=== PATIENT | female | born 1995 | race Asian ===

== ENCOUNTER 2025-03-29 12:32 | Emergency (ER) | payer OTHER ==
[~2025-03-29] VITALS: Ht 157.5 cm; Wt 86.0 kg
[2025-03-29] MEDS ORDERED: VENTAER INH (14:54)
[2025-03-29 15:14] VITALS: BP 136/79; TEMP 97.9; O2SAT 96
== END 2025-03-29 15:16 | disposition home or self-care (01) ==
LOC: M ED 12:32
DX: J06.9 Acute upper respiratory infection, unspecified (principal); Z79.52 Long term (current) use of systemic steroids